=== PATIENT | male | born 1980 | race Caucasian/White ===

== ENCOUNTER 2018-07-06 16:28 | Emergency (ER) | payer SELFPAY ==
--- OUTSIDE RECORDS SUMMARY | 2018-07-06 16:31 | XMS REPORT | Clinical Summary ---
:1980 Author Organization [facility] Address [address] [place] [address] Care Team Providers Name Role Phone Elva Worthington MD Primary Care Provider Allergies Active Allergy Reactions Severity Noted Date Comments Fluticasone-Salmeterol Hives 02/13/2018 Zolpidem Other (See Comments) 12/08/2016 hallucinations Medications Medication Sig Dispensed Refills Start Date End Date Status sertraline (ZOLOFT) Take 100 mg by 0 Active 100 MG tablet mouth daily. busPIRone (BUSPAR) Take 10 mg by 0 01/24/2018 Active 10 MG tablet mouth 2 (two) times a day. lithium (LITHOBID) Take 600 mg by 0 01/16/2018 Active 300 MG CR tablet mouth 2 (two) times a day. LATUDA 120 mg Take 1 tablet by 0 01/16/2018 Active tablet mouth nightly. temazepam TAKE ONE CAPSULE 0 01/16/2018 Active (RESTORIL) 30 mg BY MOUTH DAILY capsule AT BEDTIME triamcinolone Apply topically 80 g 0 02/13/2018 Active (KENALOG) 0.1 % 2 (two) times a 9 ointment day. fenofibrate Take 1 tablet 90 tablet 0 02/13/2018 Active (TRICOR) 145 MG (145 mg total) tablet by mouth nightly. amLODIPine TAKE 1 TABLET BY 90 tablet 0 05/15/2018 Active (NORVASC) 5 mg MOUTH EVERY DAY tablet UNABLE TO FIND Take 4 capsules by mouth. Med Name: [place] [facility] 0 Discontinued 4 gel capsules by mouth 2 times a day 8 Fish oil supplement montelukast Take 10 mg by 0 Discontinued (SINGULAIR) 10 mg mouth nightly. 8 tablet clonAZEPAM Take 1 mg by 0 Discontinued (KlonoPIN) 1 MG mouth daily. 8 tablet divalproex Take 250 mg by 0 Discontinued (DEPAKOTE) 250 MG mouth 2 (two) 8 EC tablet times a day. fenofibrate Take 145 mg by 0 01/16/2018 Discontinued (TRICOR) 145 MG mouth nightly. 8 tablet amLODIPine Take 1 tablet (5 90 tablet 0 02/13/2018 Discontinued (NORVASC) 5 mg mg total) by 8 tablet mouth daily. Active Problems No known active problems Encounters Date Type Specialty Care Team Description 05/15/2018 Refill Internal Medicine Elva Worthington MD 03/14/2018 Office Visit Internal Medicine Elva Wotrhington MD Routine general medical examination at a health care facility; Essential hypertension; Hypertriglyceridemia; Bipolar 1 disorder, mixed, moderate (HCC); Insomnia, unspecified type; Abnormal TSH; Abnormal LFTs; Overweight 02/15/2018 Orders Only Internal Medicine Elva Worthington MD Abnormal TSH ( Primary Dx); Abnormal LFTs; Creatinine elevation 02/13/2018 Office Visit Internal Medicine Elva Worthington MD Bipolar 2 disorder (Primary Dx); Anxiety and depression; Eczema, unspecified type; Weight gain; Hypertriglyceridemia; Encounter for examination of blood pressure without abnormal findings; Influenza vaccination declined after 07/05/2017 Immunizations Name Dates Previously Given Next Due INFLUENZA QUAD PF 03/14/2018 Family History Medical History Relation Name Comments No Known Problems Brother Diabetes Father Lung cancer Maternal Grandfather Bipolar disorder Maternal Grandmother Diabetes Mother Migraines Sister Relation Name Status Comments Brother Father Alive Maternal Grandfather Maternal Grandmother Mother Alive Sister Social History Tobacco Use Types Packs/Day Years Used Date Never Smoker Smokeless Tobacco: Former User Alcohol Use Drinks/Week oz/Week Comments No Sex Assigned at Date Recorded Not on file Job Start Date Occupation Industry Not on file Not on file Not on file Travel History Travel Start Travel End No recent travel history available. Last Filed Vital Signs Vital Sign Reading Time Taken Blood Pressure 136/81 03/14/2018 10:47 AM CDT Pulse 71 03/14/2018 10:47 AM CDT Temperature 36.9 C (98.5 F) 02/13/2018 8:44 AM CDT Respiratory Rate - - Oxygen Saturation 96% 03/14/2018 10:47 AM CDT Inhaled Oxygen Concentration - - Weight 99.3 kg (219 lb) 03/14/2018 10:47 AM CDT Height 182.9 cm (6') 03/14/2018 10:47 AM CDT Body Mass Index 29.7 03/14/2018 10:47 AM CDT Plan of Treatment Health Maintenance Due Date Last Done Comments INFLUENZA VACCINE Completed 03/14/2018 Procedures Procedure Name Priority Date/Time Associated Diagnosis Comments PERSONAL FACTORS Routine 03/14/2018 11:41 Results for this AM CDT procedure are in the results section. ALBUMIN LEVEL Routine 03/14/2018 11:41 Results for this AM CDT procedure are in the results section. PLATELET COUNT Routine 03/14/2018 11:41 Results for this AM CDT procedure are in the results section. ALT (SGPT) Routine 03/14/2018 11:41 Results for this AM CDT procedure are in the results section. AST (SGOT) Routine 03/14/2018 11:41 Results for this AM CDT procedure are in the results section. GLUCOSE LEVEL Routine 03/14/2018 11:41 Results for this AM CDT procedure are in the results section. INTERPRETATION (REFLEX Routine 03/14/2018 11:41 Results for this [facility]) AM CDT procedure are in the results section. NAFLD FIBROSIS SCORE Routine 03/14/2018 11:41 Results for this (REFLEX) AM CDT procedure are in the results section. RPR SCREEN Routine 03/14/2018 11:41 Abnormal LFTs Results for this AM CDT procedure are in the results section. HEPATITIS C ANTIBODY Routine 03/14/2018 11:41 Abnormal LFTs Results for this AM CDT procedure are in the results section. HEPATITIS B SURFACE Routine 03/14/2018 11:41 Abnormal LFTs Results for this ANTIGEN AM CDT procedure are in the results section. HEPATITIS B SURFACE Routine 03/14/2018 11:41 Abnormal LFTs Results for this ANTIBODY AM CDT procedure are in the results section. HEPATITIS B CORE Routine 03/14/2018 11:41 Abnormal LFTs Results for this ANTIBODY TOTAL AM CDT procedure are in the results section. ANTI MITOCHONDRIA Routine 03/14/2018 11:41 Abnormal LFTs Results for this TITER AM CDT procedure are in the results section. F-ACTIN (SMOOTH Routine 03/14/2018 11:41 Abnormal LFTs Results for this MUSCLE) ANTIBODY, IGG AM CDT procedure are in the results section. THYROID PEROXIDASE Routine 03/14/2018 11:41 Abnormal TSH Results for this ANTIBODY AM CDT procedure are in the results section. URINALYSIS, COMPLETE, Routine 03/14/2018 11:41 Essential Results for this WITH REFLEX TO CULTURE AM CDT hypertension procedure are in the results section. VITAMIN B12 LEVEL Routine 03/14/2018 11:41 Bipolar 1 disorder, Results for this AM CDT mixed, moderate procedure are in (HCC) the results section. THYROID STIMULATING Routine 03/14/2018 11:41 Abnormal TSH Results for this HORMONE AM CDT procedure are in the results section. T4, FREE Routine 03/14/2018 11:41 Routine general Results for this AM CDT medical examination procedure are in at a health care the results facility section. Abnormal TSH HEMOGLOBIN A1C Routine 03/14/2018 11:41 Routine general Results for this AM CDT medical examination procedure are in at a health care the results facility section. COMPREHENSIVE Routine 03/14/2018 11:41 Routine general Results for this METABOLIC PANEL AM CDT medical examination procedure are in at a health care the results facility section. Essential hypertension Hypertriglyceridemia Bipolar 1 disorder, mixed, moderate (HCC) Insomnia, unspecified type Abnormal TSH Abnormal LFTs ECG 12-LEAD Routine 03/14/2018 11:33 Routine general Results for this AM CDT medical examination procedure are in at a health care the results facility section. Essential hypertension LITHIUM LEVEL Routine 02/13/2018 9:34 Results for this AM CDT procedure are in the results section. LIPID PANEL Routine 02/13/2018 9:34 Weight gain Results for this AM CDT Encounter for procedure are in examination of blood the results pressure without section. abnormal findings URINALYSIS, COMPLETE, Routine 02/13/2018 9:34 Weight gain Results for this WITH REFLEX TO CULTURE AM CDT Encounter for procedure are in examination of blood the results pressure without section. abnormal findings THYROID STIMULATING Routine 02/13/2018 9:34 Weight gain Results for this HORMONE AM CDT Encounter for procedure are in examination of blood the results pressure without section. abnormal findings T4, FREE Routine 02/13/2018 9:34 Weight gain Results for this AM CDT Encounter for procedure are in examination of blood the results pressure without section. abnormal findings COMPREHENSIVE Routine 02/13/2018 9:34 Bipolar 2 disorder Results for this METABOLIC PANEL AM CDT Anxiety and procedure are in depression the results Eczema, unspecified section. type Weight gain Hypertriglyceridemia Encounter for examination of blood pressure without abnormal findings CBC WITH PLATELET AND Routine 02/13/2018 9:34 Weight gain Results for this DIFFERENTIAL AM CDT Encounter for procedure are in examination of blood the results pressure without section. abnormal findings after 07/05/2017 Results PERSONAL FACTORS (03/14/2018 11:41 AM CDT) Height feet 6 ft [facility] [place] Height inches 0 in [facility] [place] Weight 219 lbs [facility] [place] Calculated BMI 29.7 [facility] [place] Diabetic NO [facility] [place] Resulting Agency Comment Performing Organization Information: Site ID: [id number] Name: [facility] Address: [address] [place] [phone] Director: Denice Vila Performing Organization Address [facility] Centercode Phone Number [facility] [place] [place] [address] INTERPRETATION (03/14/2018 11:41 AM CDT) Interpretation [facility] [place] Comment: NAFLD Fibrosis Score less than -1.455:Consistent with the absence of significant fibrosis. Reference: Edwige P, Sandra BECKMAN, Heather G, Dc E, Vega J, Srinivasa NGUYEN, Derek F, Eloy S, Nilay DA, et al. The NAFLD fibrosis score: a noninvasive system that identifies liver fibrosis in patients with NAFLD. HEPATOLOGY 2007;45:846-854. If fasting conditions were not met, use caution when interpreting the glucose test result and the NAFLD Fibrosis Score. Resulting Agency Comment Performing Organization Information: Site ID: [id number] Name: [facility] Address: [address] [place] [phone] Director: Denice Vila Performing Organization Address [facility] Centercodc [place] [address] NAFLD FIBROSIS SCORE (REFLEX) (03/14/2018 11:41 AM CDT) NAFLD fibrosis score -2.674 [facility] [place] Resulting Agency Comment Performing Organization Information: Site ID: RGA Name: [facility] Address: [address] [place] [phone] Director: Denice Vila Performing Organization Address [facility] Centercode Phone Number [facility] [address] [address] URINALYSIS, COMPLETE, WITH REFLEX TO CULTURE (03/14/2018 11:41 AM CDT)Only the most recent of2 resultswithin the time period is included. Color, UA YELLOW YELLOW [facility] [place] Appearance CLEAR CLEAR [facility] [place] Specific gravity, urine 1.003 1.001 - 1.035 [facility] [place] pH, urine 7.0 5.0 - 8.0 [facility] [place] Glucose, urine NEGATIVE NEGATIVE [facility] [place] Bilirubin, UA NEGATIVE NEGATIVE [facility] [place] Ketones, UA NEGATIVE NEGATIVE [facility] [place] Occult blood, urine NEGATIVE NEGATIVE [facility] [place] Protein, UA NEGATIVE NEGATIVE [facility] [place] Nitrite, UA NEGATIVE NEGATIVE [facility] [place] Leukocyte esterase, UA NEGATIVE NEGATIVE [facility] [place] WBC, UA NONE SEEN < OR=5 /HPF [facility] [place] RBC, UA NONE SEEN < OR=2 /HPF [facility] [place] Squamous epithelial NONE SEEN < OR=5 /HPF [facility] [place] cells, UA Bacteria, UA NONE SEEN NONE SEEN /HPF [facility] [place] Hyaline casts, UA NONE SEEN NONE SEEN /LPF [facility] [place] Reflex NO CULTURE INDICATED [facility] [place] Resulting Agency Comment Performing Organization Information: Site ID: [facility] Name: [facility] Address: [address] [place] [phone] Director: Denice Vila Performing Organization Address [facility] Centercode Phone Number [facility] [address] [address] Hepatitis C antibody (03/14/2018 11:41 AM CDT) Hepatitis C Ab NON-REACTIVE NON-REACTIVE [facility] [place] Signal/cutoff 0.01 <1.00 [facility] [place] Specimen Blood Resulting Agency Comment Performing Organization Information: Site ID: [facility] Name: [facility] Address: [address] [place] [phone] Director: Denice Vila Performing Organization Address City/[facility]/Zipcode Phone Number [facility] [address] [address] Thyroperoxidase antibody (03/14/2018 11:41 AM CDT) Thyroperoxidase Ab <1 <9 IU/mL [facility] Specimen Blood Resulting Agency Comment Performing Organization Information: Site ID: [id number] Name: [facility] Address: [address] [place] [address] Director: Dr. Arik Ocasio Performing Organization Address City/[facility] Centercode Phone Number [facility] [place] [address] F-actin (smooth muscle) antibody, IgG (03/14/2018 11:41 AM CDT) F-actin (smooth muscle) <20 U [facility] Ab, IgG Comment: [facility] Reference Range: < 20 NEGATIVE > OR=20 POSITIVE Antibodies recognizing actin are the main component of smooth muscle antibodies associated with autoimmune liver disease. Actin antibodies are found in approximately 75% of patients with autoimmune hepatitis (AIH) type 1, approximately 65% of patients with autoimmune cholangitis, approximately 30% of patients with primary biliary cirrhosis, and approximately 2% of healthy people. High values are closely correlated with AIH type 1. Specimen Blood Resulting Agency Comment Performing Organization Information: Site ID: [id number] Name: [facility] [employer], Address: [address] [place] [phone] Director: Ariela Hackett MD,PhD,HAFSA Performing Organization Address [facility] Centercode Phone Number [facility] [place] [address] [facility] Hepatitis B core antibody total (03/14/2018 11:41 AM CDT) Hepatitis B core total Ab NON-REACTIVE NON-REACTIVE [facility] [place] Specimen Blood Resulting Agency Comment Performing Organization Information: Site ID: RGA Name: [facility] Address: [address] [place] [phone] Director: Denice Vila Performing Organization Address [facility]/Zipcode Phone Number [facility] [address] [address] Anti mitochondria titer (03/14/2018 11:41 AM CDT) Mitochondrial Ab <20.0 U [facility] Comment: Reference Range: NEGATIVE:< OR=20.0 EQUIVOCAL: 20.1-24.9 POSITIVE:> OR=25.0 Specimen Blood Resulting Agency Comment Performing Organization Information: Site ID: [id number] Name: [email or web address], Address: [address] [place] [phone] Director: Ariela Hackett MD,PhD,HAFSA Performing Organization Address City/State/[facility] Centercode Phone Number [facility] [address] [place] [phone] [facility] RPR screen (03/14/2018 11:41 AM CDT) RPR (monitor) w/refl titer NON-REACTIVE NON-REACTIVE [facility] [place] Specimen Blood Resulting Agency Comment Performing Organization Information: Site ID: RGA Name: [facility] Address: [address] [place] [phone] Director: Denice Vila Performing Organization Address [facility] [place] [address] Hepatitis B surface antibody (03/14/2018 11:41 AM CDT) Hepatitis B surface Ab REACTIVE (A) NON-REACTIVE [facility] [place] Specimen Blood Resulting Agency Comment Performing Organization Information: Site ID: RGA Name: [facility] Address: [address] [place] [phone] Director: Denice Vila Performing Organization Address City/[facility] Centerc[facility] [place] [address] Hepatitis B surface antigen (03/14/2018 11:41 AM CDT) Hepatitis B surface Ag NON-REACTIVE NON-REACTIVE [facility] [place] Specimen Blood Resulting Agency Comment Performing Organization Information: Site ID: RGA Name: [facility] Address: [address] [place] [phone] Director: Denice Vila Performing Organization Address City/State/[facility] Phone Number [facility] [place] [address] [place] [address] Platelet count (03/14/2018 11:41 AM CDT) Platelet count 177 140 - 400 Thousand/uL [facility] [place] Resulting Agency Comment Performing Organization Information: Site ID: A Name: [facility] Address: [address] [place] [address] Director: Denice Vila Performing Organization Address [facility] [place] [address] ALT (SGPT) (03/14/2018 11:41 AM CDT) ALT 39 9 - 46 U/L [facility] [place] Resulting Agency Comment Performing Organization Information: Site ID: A Name: [facility] Address: [address] [place] [phone] Director: Denice Vila Performing Organization Address [facility] [place] [address] AST (SGOT) (03/14/2018 11:41 AM CDT) AST 20 10 - 40 U/L [facility] [place] Resulting Agency Comment Performing Organization Information: Site ID: A Name: [facility] Address: [address] [place] [phone] Director: Denice Vila Performing Organization Address [facility] [place] [address] Thyroid stimulating hormone (03/14/2018 11:41 AM CDT)Only the most recent of2 resultswithin the time period is included. TSH 6.27 (H) 0.40 - 4.50 mIU/L [facility] [place] Specimen Blood Resulting Agency Comment Performing Organization Information: Site ID: RGA Name: [facility] Address: [address] [place] [phone] Director: Denice Vila Performing Organization Address [facility] Number [facility] [place] [phone] T4, free (03/14/2018 11:41 AM CDT)Only the most recent of2 resultswithin the time period is included. T4, free 1.2 0.8 - 1.8 ng/dL [facility] [place] Specimen Blood Resulting Agency Comment Performing Organization Information: Site ID: [facility] Name: [facility] Address: [address] [place] [phone] Director: Denice Vila Performing Organization Address [facility] [place] [address] Hemoglobin A1c (03/14/2018 11:41 AM CDT) Hemoglobin A1C 5.1 <5.7 % of total Hgb [facility] [place] Comment: For the purpose of screening for the presence of diabetes: <5.7% Consistent with the absence of diabetes 5.7-6.4%Consistent with increased risk for diabetes (prediabetes) > or=6.5%Consistent with diabetes This assay result is consistent with a decreased risk of diabetes. Currently, no consensus exists regarding use of hemoglobin A1c for diagnosis of diabetes in children. According to [place] [employer] (ADA) guidelines, hemoglobin A1c <7.0% represents optimal control in non- diabetic patients. Different metrics may apply to specific patient populations. Standards of Medical Care in Diabetes(ADA). Specimen Blood Resulting Agency Comment Performing Organization Information: Site ID: [facility] Name: [facility] Address: [address] [place] [phone] Director: Denice Vila Performing Organization Address [facility] Phone Number [facility] [address] [phone] Glucose level (03/14/2018 11:41 AM CDT) Glucose 90 65 - 99 mg/dL [facility] [place] Comment: Fasting reference interval Resulting Agency Comment Performing Organization Information: Site ID: [facility] Name: [facility] Address: [address] [place] [phone] Director: Denice Vila Performing Organization Address [facility] Phone Number [facility] [address] [address] Vitamin B12 level (03/14/2018 11:41 AM CDT) Vitamin B12 719 200 - 1,100 pg/mL [facility] [place] Specimen Blood Resulting Agency Comment Performing Organization Information: Site ID: RGA Name: [facility] Address: [address] [place] [phone] Director: Denice Vila Performing Organization Address City/[facility] [place] [address] Albumin level (03/14/2018 11:41 AM CDT) Albumin, S 5.1 3.6 - 5.1 g/dL [facility] [place] Resulting Agency Comment Performing Organization Information: Site ID: RGA Name: [facility] Address: [address] [place] [phone] Director: Denice Vila Performing Organization Address [facility] [place] [address] Comprehensive metabolic panel (03/14/2018 11:41 AM CDT)Only the most recent of2 resultswithin the time period is included. Glucose 90 65 - 99 mg/dL [facility] Comment: [place] Fasting reference interval BUN, whole blood 13 7 - 25 mg/dL [facility] [place] Creatinine 1.20 0.60 - 1.35 mg/dL [facility] [place] EGFR Non-Afr. [place]ese 77 > OR=60 [facility] mL/min/1.73m2 [place] EGFR 89 > OR=60 [facility] mL/min/1.73m2 [place] BUN/creatinine ratio NOT APPLICABLE 6 - 22 (calc) [facility] [place] Sodium 138 135 - 146 mmol/L [facility] [place] Potassium 4.1 3.5 - 5.3 mmol/L [facility] [place] Chloride 101 98 - 110 mmol/L [facility] [place] CO2 30 20 - 32 mmol/L [facility] [place] Calcium 9.9 8.6 - 10.3 mg/dL [facility] [place] Protein 7.5 6.1 - 8.1 g/dL [facility] [place] Albumin, S 5.1 3.6 - 5.1 g/dL [facility] [place] Globulin, total 2.4 1.9 - 3.7 g/dL [facility] (calc) [place] Albumin/globulin ratio 2.1 1.0 - 2.5 (calc) [facility] [place] Total bilirubin 0.5 0.2 - 1.2 mg/dL [facility] [place] Alkaline phosphatase 82 40 - 115 U/L [facility] [place] AST 20 10 - 40 U/L [facility] [place] ALT 39 9 - 46 U/L [facility] [place] Specimen Blood Resulting Agency Comment Performing Organization Information: Site ID: RGA Name: [facility] Address: [address] [place] [phone] Director: Denice Vila Performing Organization Address City/[facility] Cent[facility] Phone Number [facility] [address] [address] ECG 12 lead (03/14/2018 11:33 AM CDT) Ventricular rate 57 [facility] Atrial rate 57 [facility] LA interval 152 [facility] QRSD interval 102 [facility] QT interval 426 [facility] QTC interval 414 [facility] P axis 1 54 [facility] MUSE QRS axis 1 86 [facility] MUSE T wave axis 52 [facility] MUSE EKG impression normal ekg- Performing Organization Address [facility] Phone Number Zoom MUSE [address] [place] [address] CBC with platelet and differential (02/13/2018 9:34 AM CDT) WBC 6.2 3.8 - 10.8 Thousand/uL [facility] [place] RBC 4.58 4.20 - 5.80 Million/uL [facility] [place] HGB 14.1 13.2 - 17.1 g/dL [facility] [place] HCT 41.6 38.5 - 50.0 % [facility] [place] MCV 90.8 80.0 - 100.0 fL [facility] [place] MCH 30.8 27.0 - 33.0 pg [facility] [place] MCHC 33.9 32.0 - 36.0 g/dL [facility] [place] RDW 12.9 11.0 - 15.0 % [facility] [place] Platelet count 177 140 - 400 Thousand/uL [facility] [place] MPV 11.3 7.5 - 12.5 fL [facility] Neutrophils, absolute 4,340 1,500 - 7,800 cells/uL [facility] [place] Lymphocytes, absolute 1,190 850 - 3,900 cells/uL [facility] [place] Monocytes, absolute 502 200 - 950 cells/uL [facility] [place] Eosinophils, absolute 118 15 - 500 cells/uL [facility] [place] Basophils, absolute 50 0 - 200 cells/uL [facility] Neutrophils 70 % [facility] Lymphocytes 19.2 % [facility] Monocytes 8.1 % [facility] Eosinophils 1.9 % [facility] Basophils + RC 0.8 % [facility] Specimen Blood Resulting Agency Comment Performing Organization Information: Site ID: [id number] Name: [facility] Address: [address] [place] [id number] Director: Denice Vila Performing Organization Address [facility] Phone Number [facility] [place] [address] [place] level (02/13/2018 9:34 AM CDT) [place] 0.8 0.6 - 1.2 mmol/L [facility] [place] Resulting Agency Comment Performing Organization Information: Site ID: [id number] Name: [facility] Address: [address] [place] [phone] Director: Denice Vila Performing Organization Address [facility] Phone Number [facility] [place] [address] Lipid panel (02/13/2018 9:34 AM CDT) Cholesterol, total 219 (H) <200 mg/dL [facility] HDL cholesterol 30 (L) >40 mg/dL [facility] Triglycerides 229 (H) <150 mg/dL [facility] LDL cholesterol 152 (H) mg/dL (calc) [facility] calculated Comment: [place] Reference range: <100 Desirable range <100 mg/dL for primary prevention; <70 mg/dL for patients with CHD or diabetic patients with > or=2 CHD risk factors. LDL-C is now calculated using the José Luis calculation, which is a validated novel method providing better accuracy than the Friedewald equation in the estimation of LDL-C. Werner CHASE et al. HOANG. 2013;310(19): 3958-9121 (http://education.(In)Touch Network.Ti Knight/faq/DBY890) Cholesterol/HDL ratio 7.3 (H) <5.0 (calc) [facility] [place] Non-HDL cholesterol 189 (H) <130 mg/dL [facility] Comment: (calc) [place] For patients with diabetes plus 1 major ASCVD risk factor, treating to a non-HDL-C goal of <100 mg/dL (LDL-C of <70 mg/dL) is considered a therapeutic option. Specimen Blood Resulting Agency Comment Performing Organization Information: Site ID: [id number] Name: [facility] Address: [address] [place] [id number] Director: Denice Vila Performing Organization Address City/State/Zipcode Phone Number [facility] [address] [address] after 07/05/2017 Insurance Payer Benefit Plan / Group Subscriber ID Type Phone Address BCBS BCBS OUT OF STATE xxxxxxxxxxxx PPO Advance Directives Patient has advance care planning documents on file. For more information, please contact:[place] [address]
--- OUTSIDE RECORDS SUMMARY | 2018-07-06 16:31 | XMS REPORT | Summary of Care ---
:1980 Author Organization [facility] Address [address] [place] [id number]- Encounter HQ Uzmantr_scarlett(FIN) [id number] Date(s): 05/20/16 - 05/20/[address] [address]- Discharge Diagnosis: Cough Discharge Disposition: Home or Self Care Attending Physician: Jose Hdz MD Vital Signs Most recent to oldest 1 2 3 [Reference Range]: Height 182.88 cm (05/20/16 3:02 PM) Temperature Oral [96.4-99.1 98 DegF 98.3 DegF DegF] (05/20/16 5:58 PM) (05/20/16 3:02 PM) Blood Pressure [90-140/60-90 142/98 mmHg 145/81 mmHg 155/102 mmHg mmHg] *HI* *HI* *HI* (05/20/16 5:58 PM) (05/20/16 5:27 PM) (05/20/16 4:40 PM) Respiratory Rate [14-20 16 BRMIN 17 BRMIN 16 BRMIN BRMIN] (05/20/16 5:58 PM) (05/20/16 5:27 PM) (05/20/16 4:40 PM) Peripheral Pulse Rate 58 bpm 59 bpm 54 bpm [60-100 bpm] *LOW* *LOW* *LOW* (05/20/16 5:58 PM) (05/20/16 5:27 PM) (05/20/16 4:40 PM) Weight 86.818 kg (05/20/16 3:02 PM) Body Mass Index 25.96 m2 (05/20/16 3:02 PM) Problem List Condition Effective Dates Status Health Status Informant Bipolar(Confirmed) Resolved Eruption1, 2 04/02/08 Active 1[facility] migrated from [facility] on 10/29[facility]14.[facility] Allergies, Adverse Reactions, Alerts Substance Reaction Severity Status NKDA1 Active [facility] Originally documented as NKA. Medications acetaminophen-codeine 300 mg-30 mg oral tablet 1 tab, PO, Q6H, PRN Cough, X 5 day, # 20 tab, 0 Refill(s) Start Date: 05/20/16 Stop Date: 05/25/16 Status: Orderedacetaminophen-codeine 300 mg-30 mg oral tablet 1 tab, Route: PO, Drug Form: TAB, Dosing Weight 86.818, kg, ONCE, STAT, Start date: 05/20/16 17:11:00 RESEARCH COMPLIANCE SPECIALIST, Stop date: 05/20/16 17:11:00 RESEARCH COMPLIANCE SPECIALIST Notes: Do not exceed 4gm/day of acetaminophen. (Same as: Tylenol with Codeine # 3) Start Date: 05/20/16 Stop Date: 05/20/16 Status: Completedazithromycin 500 mg, 2 tab, Route: PO, Drug form: TAB, ONCE, Dosing Weight 86.818, kg, Priority: STAT, Start date: 05/20/16 17:12:00 RESEARCH COMPLIANCE SPECIALIST, Stop date: 05/20/16 17:12:00 RESEARCH COMPLIANCE SPECIALIST Notes: Take 1 hour before or 2 hours after meals.(Same As: Zithromax) Start Date: 05/20/16 Stop Date: 05/20/16 Status: Completedazithromycin 500 mg oral tablet 500 mg=1 tab, PO, Daily, X 2 day, # 2 tab, 0 Refill(s) Start Date: 05/21/16 Stop Date: 05/23/16 Status: Ordered Results ELECTROLYTES Most recent to oldest [Reference Range]: 1 Sodium Lvl [135-145 mEq/L] 141 mEq/L (05/20/16 3:58 PM) Potassium Lvl [3.5-5.1 mEq/L] 3.8 mEq/L (05/20/16 3:58 PM) Chloride Lvl [95-109 mEq/L] 106 mEq/L (05/20/16 3:58 PM) CO2 [24-32 mEq/L] 27 mEq/L (05/20/16 3:58 PM) AGAP [10.0-20.0 mEq/L] 11.8 mEq/L (05/20/16 3:58 PM) CHEM PANEL Most recent to oldest [Reference Range]: 1 Creatinine Lvl [0.50-1.40 mg/dL] 1.09 mg/dL (05/20/16 3:58 PM) eGFR 87 mL/min/1.73m2 1 *NA* (05/20/16 3:58 PM) BUN [7-22 mg/dL] 7 mg/dL (05/20/16 3:58 PM) Glucose Lvl [70-99 mg/dL] 90 mg/dL (05/20/16 3:58 PM) Calcium Lvl [8.5-10.5 mg/dL] 9.1 mg/dL (05/20/16 3:58 PM) 1Result Comment: The eGFR is calculated using the CKD-EPI formula. In most young , healthy individualsthe eGFR will be >90 mL/min/1.73m2. The eGFR declines with age. An eGFR of 60-89 may be normal in some populations, particularly the elderly, for whom the CKD-EPI formula has not been extensively validated. Use of the eGFR is not recommended in the following populations: Individuals with unstable creatinine concentrations, including patients and those with serious co-morbid conditions. Patients with extremes in muscle mass or diet. The data above are obtained from the National Kidney Disease Education Program ( NKDEP) which additionally recommends that when the eGFR is used in patients with extremes of body mass index for purposesof drug dosing, the eGFR should be multiplied by the estimated BMI.HEMATOLOGY Most recent to oldest [Reference Range]: 1 WBC [3.7-10.4 K/CMM] 5.8 K/CMM (05/20/16 3:58 PM) RBC [4.70-6.10 M/CMM] 5.26 M/CMM (05/20/16 3:58 PM) Hgb [14.0-18.0 g/dL] 15.4 g/dL (05/20/16 3:58 PM) Hct [42.0-54.0 %] 45.9 % (05/20/16 3:58 PM) MCV [80.0-94.0 fL] 87.4 fL (05/20/16 3:58 PM) MCH [27.0-31.0 pg] 29.2 pg (05/20/16 3:58 PM) MCHC [32.0-36.0 g/dL] 33.5 g/dL (05/20/16 3:58 PM) RDW [11.5-14.5 %] 13.1 % (05/20/16 3:58 PM) Platelet [133-450 K/CMM] 141 K/CMM (05/20/16 3:58 PM) MPV [7.4-10.4 fL] 9.1 fL (05/20/16 3:58 PM) Segs [45.0-75.0 %] 67.9 % (05/20/16 3:58 PM) Lymphocytes [20.0-40.0 %] 21.1 % (05/20/16 3:58 PM) Monocytes [2.0-12.0 %] 8.6 % (05/20/16 3:58 PM) Eosinophils [0.0-4.0 %] 1.6 % (05/20/16 3:58 PM) Basophils [0.0-1.0 %] 0.8 % (05/20/16 3:58 PM) Segs-Bands # [1.5-8.1 K/CMM] 4.0 K/CMM (05/20/16 3:58 PM) Lymphocytes # [1.0-5.5 K/CMM] 1.2 K/CMM (05/20/16 3:58 PM) Monocytes # [0.0-0.8 K/CMM] 0.5 K/CMM (05/20/16 3:58 PM) Eosinophils # [0.0-0.5 K/CMM] 0.1 K/CMM (05/20/16 3:58 PM) Immunizations No data available for this section Procedures Procedure Date Related Diagnosis Body Site LASIK Social History Social History Type Response Smoking Status Never smoker; Exposure to Tobacco Smoke None; Cigarette Smoking Last 365 Days No; Reg Smoking Cessation Counseling No Assessment and Plan No data available for this section
--- OUTSIDE RECORDS SUMMARY | 2018-07-06 16:31 | XMS REPORT | Continuity of Care Document ---
:1980 Author Organization Interface Problems Problem Status Onset Classification Date Comments Source Date Reported APNEA Active 09/24/[address] Discharge 05/20/20 05/23/2016 [facility] Diagnosis: [address] [place] [address] Cough FEVER Active 05/20/[address] Discharge 08/29/19 09/01/2015 [facility] Diagnosis: [address] [place] [address] Epididymitis Discharge 08/29/19 09/01/2015 [facility] Diagnosis: [address] [place] [address] Acute hydrocele ABD PAIN Active 08/29/[address] Eruption<sup>1, Active 04/02/20 Problem 10/10/2016 Data 2</sup> 08 migrated [facility] from [facility] on 10/29/14. Bipolar Resolved Problem 10/10/2016 [facility] Medications Medication Details Route Status Patient Ordering Order Source Instructions Provider Date azithromycin 500 mg=1 Active 500 mg oral tab, PO, 016 [facility] tablet Daily, X 2 City day, # 2 tab, 0 Refill(s) Acetaminophen 1 tab, PO, Active 300 MG / Q6H, PRN 016 [facility] Codeine Cough, X 5 City Phosphate 30 MG day, # 20 Oral Tablet tab, 0 Refill(s) Azithromycin 500 mg, 2 Inactive tab, Route: 016 [facility] PO, Drug City form: TAB, ONCE, Dosing Weight 86.818, kg, Priority: STAT, Start date: 05/20/16 17:12:00 BATCH MAKER, Stop date: 05/20/16 17:12:00 CSTNotes: Take 1 hour before or 2 hours after meals. (Same As: Zithromax) Acetaminophen 1 tab, Inactive 300 MG / Route: PO, [facility] Codeine Drug Form: City Phosphate 30 MG TAB, Dosing Oral Tablet Weight 86.818, kg, ONCE, STAT, Start date: 05/20/16 17:11:00 BATCH MAKER, Stop date: 05/20/16 17:11:00 CSTNotes: Do not exceed 4gm/day of acetaminophe n. (Same as: Tylenol with Codeine # 3) Acetaminophen 1 tab, PO, Active 300 MG / Q6H, PRN [address] [place] [address] Codeine Pain, X 3 City Phosphate 30 MG day, # 12 Oral Tablet tab, 0 [Tylenol with Refill(s) Codeine #3] Acetaminophen 1 tab, PO, Inactive MH 300 MG / Q6H, PRN [address] [place] [address] Codeine Pain, X 5 City Phosphate 30 MG day, # 20 Oral Tablet tab, 0 [Tylenol with Refill(s) Codeine #3] Ceftriaxone 250 mg, Inactive Route: IM, [address] [place] [address] Drug form: City PDR/INJ, ONCE, Dosing Weight 79.545, kg, Priority: STAT, Start date: 08/29/15 14:50:00, Stop date: 08/29/15 14:50:00Note s: (Same As: Rocephin). Use with 100 mL NS and infuse over 30 min MEDICATION WASTE Product Size: 1000 mg Product Wasted: ___ mg doxycycline 100 mg=1 Active hyclate 100 mg tab, PO, [address] [place] [address] oral tablet Q12H, X 10 City day, # 20 tab, 0 Refill(s) Ibuprofen 600 mg, 1 Inactive tab, Route: [address] [place] [address] PO, Drug City form: TAB, ONCE, Dosing Weight 79.545, kg, Priority: STAT, Start date: 08/29/15 14:12:00, Stop date: 08/29/15 14:12:00Note s: (Same as: Motrin) "Do Not Crush" Take with food. Acetaminophen 1 tab, Inactive MH 325 MG / Route: PO, [address] [place] [address] Hydrocodone Drug Form: [facility] Bitartrate 5 MG TAB, Dosing Oral Tablet Weight [[place] 5/325] 79.545, kg, ONCE, STAT, Start date: 08/29/15 14:12:00, Stop date: 08/29/15 14:12:00Note s: (Same as: [place] 325/5) Do not exceed 4gm/day of acetaminophe n. Allergies, Adverse Reactions, Alerts Substance Category Reaction Severity Reaction Status Date Comments Source type Reported Immunizations Immunization Date Given Site Status Last Updated Comments Source Results Order Name Results Value Reference Date Interpretation Comments Source Range ELECTROLYTE AGAP 11.8 meq/L 10.0 - 05/20 S . [facility] ELECTROLYTE eGFR 87 05/20 Result Comment: The eGFR is calculated using the CKD-EPI formula. In most young, healthy individuals the eGFR will be >90 mL/ min/1.73m2. The eGFR declines with age. An eGFR of 60-89 may be normal in mL/min/1.7 some populations, particularly the elderly, for whom the CKD-EPI formula has not been extensively validated. Use of the eGFR is not recommended in the following populations: [address] Individuals with unstable creatinine concentrations, including patients and those with serious co-morbid conditions. Patients with extremes in muscle mass or diet. The data above are obtained from the National Kidney Disease Education Program (NKDEP) which additionally recommends that when the eGFR is used in patients with extremes of body mass index for purposes of drug dosing, the eGFR should be multiplied by the estimated BMI. ELECTROLYTE CO2 27 meq/L 24 - 32 05/20 S [facility] ELECTROLYTE BUN 7 mg/dL 7 - 22 05/20 S [facility] ELECTROLYTE Creatinine 1.09 mg/dL 0.50 - 05/20 S Lvl 1. [facility] ELECTROLYTE Potassium 3.8 meq/L 3.5 - 5.1 05/20 S Lvl [facility] ELECTROLYTE Sodium Lvl 141 meq/L 135 - 145 05/20 S [facility] ELECTROLYTE Glucose Lvl 90 mg/dL 70 - 99 05/20 S [facility] ELECTROLYTE Calcium Lvl 9.1 mg/dL 8.5 - 10.5 05/20 S [facility] ELECTROLYTE Chloride Lvl 106 meq/L 95 - 109 05/20 S [facility] HEMATOLOGY Eosinophils 1.6 % 0.0 - 4.0 05/20 [facility] HEMATOLOGY Monocytes 8.6 % 2.0 - 12.0 05/20 [facility] HEMATOLOGY Basophils 0.8 % 0.0 - 1.0 05/20 [facility] HEMATOLOGY Lymphocytes 21.1 % 20.0 - 05/20 MH 40.0 [facility] HEMATOLOGY Segs 67.9 % 45.0 - 05/20 MH 75.0 /2015 [facility] HEMATOLOGY Monocytes # 0.5 K/CMM 0.0 - 0.8 05/20 /2015 [facility] HEMATOLOGY Eosinophils 0.1 K/CMM 0.0 - 0.5 05/20 MH # /2015 [facility] HEMATOLOGY Segs-Bands # 4.0 K/CMM 1.5 - 8.1 05/20 [facility] HEMATOLOGY Lymphocytes 1.2 K/CMM 1.0 - 5.5 05/20 MH # /2015 [facility] HEMATOLOGY MPV 9.1 fL 7.4 - 10.4 05/20 /2015 [facility] Platelet 141 K/CMM 133 - 450 05/20 /2015 [facility] HEMATOLOGY RDW 13.1 % 11.5 - 05/20 MH 14.5 [facility] HEMATOLOGY Hct 45.9 % 42.0 - 05/20 MH 54.0 [facility] HEMATOLOGY WBC 5.8 K/CMM 3.7 - 10.4 05/20 /2015 [facility] HEMATOLOGY RBC 5.26 M/CMM 4.70 - 05/20 MH 6.10 [facility] HEMATOLOGY Hgb 15.4 g/dL 14.0 - 05/20 MH 18.0 [facility] HEMATOLOGY MCHC 33.5 g/dL 32.0 - 05/20 MH 36.0 [facility] HEMATOLOGY MCH 29.2 pg 27.0 - 05/20 MH 31.0 [facility] HEMATOLOGY MCV 87.4 fL 80.0 - 05/20 MH 94.0 [facility] Chest 2 Chest 2 Exam: Two-view chest x-ray 05/20 - views DX views DX /2015 - [facility] Reason for Exam: Cough and fever Read by: Alejandro Moralez MD Dictated Date/time: 05/20/16 15:28 Electronically Signed by: Alejandro Moralez MD 05/20/16 15:29 FINAL REPORT Comparison Exam: None Discussion: Cardiomediastinal silhouette is within normal limits. Both hemidiaphragms well visualized. No pulmonary edema or pleural effusions. No focal lung consolidations. Trachea is midline. No acute bony abnormalities. Impression: 1. No acute cardiopulmonary abnormalities. MOLECULAR N gonorrhea Negative Negative 08/28 DIAGNOSTIC by Amp [facility] (APTIMA) *NA* [facility] (08/29/15 2:02 PM) MOLECULAR C Negative Negative 08/28 DIAGNOSTIC trachomatis [facility] by Amp Det *NA* [facility] ([facility]) (08/29/15 2:02 PM) MOLECULAR Source Urine 08/28 DIAGNOSTIC APTIMA [facility] *NA* [facility] (08/29/15 2:02 PM) URINE AND UA Sq Epi None Seen 08/28 STOOL [facility] URINE AND UA Ketones Negative 08/28 STOOL [facility] URINE AND UA <=1.0 0.1 - 1.0 08/28 STOOL Urobilinogen mg/dL [facility] URINE AND UA pH >=9.0 5.0 - 8.0 08/28 [facility] *ABN* [facility] (08/29/15 2:02 PM) URINE AND UA Color Light Yellow Yellow 08/28 [facility] *NA* [facility] (08/29/15 2:02 PM) URINE AND UA RBC null 0 - 2 08/28 [facility] URINE AND UA Blood Negative Negative 08/28 STOOL [facility] (08/29/15 2:02 PM) [facility] URINE AND UA Nitrite Negative Negative 08/28 [facility] (08/29/15 2:02 PM) [facility] URINE AND UA Leuk Est Negative Negative 08/28 [facility] (08/29/15 2:02 PM) [facility] URINE AND UA WBC null 0 - 5 08/28 [facility] URINE AND UA Bili Negative Negative 08/28 [facility] *NA* [facility] (08/29/15 2:02 PM) URINE AND UA Turbidity Clear Clear 08/28 STOOL [facility] (08/29/15 2:02 PM) [facility] URINE AND UA Spec Grav 1.004 <=1.030 08/28 [facility] URINE AND UA Protein Negative Negative 08/28 STOOL mg/dL mg/dL [facility] URINE AND UA Glucose Negative Negative 08/28 STOOL mg/dL mg/dL [facility] Scrotal/Alla Scrotal/Test Clinical history: Pain and swelling. 08/28 - ticle US icle US /2015 - [facility] : 1980. City Read by: Cas Alcala MD Dictated Date/time: 08/29/15 14:34 Technique: Scrotal high resolution aleman scale and duplex doppler ultrasound imaging with spectral analysis. Electronically Signed by: Cas Alcala MD 08/29/15 14:37 FINAL REPORT Exam Date 08/29/2015. Right side: The testis measures 4.9 x 2.6 x 3.8 cm. The testis has normal echodensity aside from one or 2 tiny calcifications. There is no mass. There is normal testicular doppler flow. The epididymis h ead measures 10 x 9 x 10 mm. There is normal epididymal doppler flow. There is no mass. There is mild hydrocele. There is no varicocele. Left side: The testis measures 4.5 x 2.5 x 3.6 cm. The testis has normal echodensity aside from one tiny calcification. There is no mass. There is normal testicular doppler flow. The epididymis head clary sures 12 x 10 x 10 mm. The epididymal body is thickened. There is increased epididymal doppler flow. There is no mass. There is mild hydrocele. There is no varicocele. Impression: 1. Findings consistent with left epididymitis. 2. Bilateral hydrocele. 3. Few tiny testicular calcifications. Vital Signs Vital Sign Value Date Comments Source Temperature Oral (F) 98 F 05/20/2016 [facility] Heart Rate 58 05/20/2016 [facility] Respitory Rate 16 05/20/2016 [facility] Systolic (mm Hg) 142 05/20/2016 [facility] Diastolic (mm Hg) 98 05/20/2016 [facility] Respitory Rate 17 05/20/2016 [facility] Heart Rate 59 05/20/2016 [facility] Systolic (mm Hg) 145 05/20/2016 [facility] Diastolic (mm Hg) 81 05/20/2016 [facility] Systolic (mm Hg) 155 05/20/2016 [facility] Diastolic (mm Hg) 102 05/20/2016 [facility] Respitory Rate 16 05/20/2016 [facility] Heart Rate 54 05/20/2016 [facility] Weight 86.818 05/20/2016 [facility] Height 182.88 cm 05/20/2016 [facility] Temperature Oral (F) 98.3 F 05/20/2016 [facility] BMI Calculated 25.96 05/20/2016 [facility] Heart Rate 56 08/29/2015 [facility] Respitory Rate 19 08/29/2015 [facility] Systolic (mm Hg) 125 08/29/2015 [facility] Diastolic (mm Hg) 68 08/29/2015 [facility] Weight 79.545 08/29/2015 [facility] Temperature Oral (F) 98.1 F 08/29/2015 [facility] Height 182.88 cm 08/29/2015 [facility] BMI Calculated 23.78 08/29/2015 [facility] Heart Rate 53 08/29/2015 [facility] Systolic (mm Hg) 145 08/29/2015 [facility] Diastolic (mm Hg) 88 08/29/2015 [facility] Respitory Rate 16 08/29/2015 [facility] Encounters Location Location Encounter Encounter Reason Attending ADM DC Status Source Details Type Number For Provider Date Date Visit Formerly [facility] [id number] Je 08/28 08/28 Chad Emergency /2015 [facility] Emergency [id number] Jose 05/20 05/21 DOROTEO Hdz /2015 [facility] [id number] Murray 10/08 10/08 Chad Knowles /2016 [facility] Procedures Procedure Code Date Perfomer Comments Source LASIK [id number] [facility] LASIK [id number] [facility]
--- OUTSIDE RECORDS SUMMARY | 2018-07-06 16:31 | XMS REPORT | Summary of Care ---
:1980 Author Organization [facility] Address [address] [place] [address]- Encounter HQ Zuleyma(WILFRIDO) [id number] Date(s): 08/29/15 - 08/29/[address] [address]- Discharge Diagnosis: Epididymitis Discharge Diagnosis: Acute hydrocele Discharge Disposition: Home Attending Physician: Je Roth MD Vital Signs Most recent to oldest [Reference Range]: 1 2 Height 182.88 cm (08/29/15 10:58 AM) Temperature Oral [96.4-99.1 DegF] 98.1 DegF (08/29/15 10:58 AM) Blood Pressure [90-140/60-90 mmHg] 125/68 mmHg 145/88 mmHg (08/29/15 3:53 PM) *HI* (08/29/15 10:58 AM) Respiratory Rate [14-20 BRMIN] 19 BRMIN 16 BRMIN (08/29/15 3:53 PM) (08/29/15 10:58 AM) Peripheral Pulse Rate [60-100 bpm] 56 bpm 53 bpm *LOW* *LOW* (08/29/15 3:53 PM) (08/29/15 10:58 AM) Weight 79.545 kg (08/29/15 10:58 AM) Body Mass Index 23.78 m2 (08/29/15 10:58 AM) Problem List Condition Effective Dates Status Health Status Informant Bipolar(Confirmed) Resolved Eruption1, 2 04/02/08 Active 1Data migrated from [employer] on 10/29/14.2Data migrated from [employer] on 10/29/14. Allergies, Adverse Reactions, Alerts Substance Reaction Severity Status NKDA1 Active 1Data migrated from [employer] on 07/22/15. Originally documented as NKA. Medications cefTRIAXone 250 mg, Route: IM, Drug form: PDR/INJ, ONCE, Dosing Weight 79.545, kg, Priority : STAT, Start date: 08/29/15 14:50:00, Stop date: 08/29/15 14:50:00 Notes: (Same As: Rocephin).Use with 100 mL NS and infuse over 30 min MEDICATION WASTE Product Size: 1000 mgProduct Wasted: ___ mg Start Date: 08/29/15 Stop Date: 08/29/15 Status: Completeddoxycycline hyclate 100 mg oral tablet 100 mg=1 tab, PO, Q12H, X 10 day, # 20 tab, 0 Refill(s) Start Date: 08/29/15 Stop Date: 09/08/15 Status: Orderedibuprofen 600 mg, 1 tab, Route: PO, Drug form: TAB, ONCE, Dosing Weight 79.545, kg, Priority: STAT, Start date: 08/29/15 14:12:00, Stop date: 08/29/15 14:12:00 Notes: (Same as: Motrin)"Do Not Crush" Take with food. Start Date: 08/29/15 Stop Date: 08/29/15 Status: CompletedNorco 5/325 oral tablet 1 tab, Route: PO, Drug Form: TAB, Dosing Weight 79.545, kg, ONCE, STAT, Start date: 08/29/15 14:12:00, Stop date: 08/29/15 14:12:00 Notes: (Same as: Parlier 325/5) Do not exceed 4gm/day of acetaminophen. Start Date: 08/29/15 Stop Date: 08/29/15 Status: CompletedTylenol with Codeine #3 oral tablet 1 tab, PO, Q6H, PRN Pain, X 3 day, # 12 tab, 0 Refill(s) Start Date: 08/29/15 Stop Date: 09/01/15 Status: OrderedTylenol with Codeine #3 oral tablet 1 tab, PO, Q6H, PRN Pain, X 5 day, # 20 tab, 0 Refill(s) Start Date: 08/29/15 Stop Date: 08/29/15 Status: Discontinued Results URINE AND STOOL Most recent to oldest [Reference Range]: 1 UA Turbidity [Clear] Clear (4/1/16 2:02 PM) UA Color [Yellow] Light Yellow *NA* (08/29/15 2:02 PM) UA pH [5.0-8.0] >=9.0 *ABN* (08/29/15 2:02 PM) UA Spec Grav [<=1.030] 1.004 (08/29/15 2:02 PM) UA Glucose [Negative mg/dL] Negative mg/dL *NA* (08/29/15 2:02 PM) UA Blood [Negative] Negative (08/29/15 2:02 PM) UA Ketones Negative *NA* (08/29/15 2:02 PM) UA Protein [Negative mg/dL] Negative mg/dL (08/29/15 2:02 PM) UA Urobilinogen [0.1-1.0 mg/dL] <=1.0 mg/dL *NA* (08/29/15 2:02 PM) UA Bili [Negative] Negative *NA* (08/29/15 2:02 PM) UA Leuk Est [Negative] Negative (08/29/15 2:02 PM) UA Nitrite [Negative] Negative (08/29/15 2:02 PM) UA WBC [0-5 /HPF] <1 /HPF (08/29/15 2:02 PM) UA RBC [0-2 /HPF] <1 /HPF (08/29/15 2:02 PM) UA Sq Epi None Seen *NA* (08/29/15 2:02 PM) MOLECULAR DIAGNOSTIC Most recent to oldest [Reference Range]: 1 Source APTIMA Urine *NA* (08/29/15 2:02 PM) N gonorrhea by Amp Det (APTIMA) [Negative] Negative *NA* (08/29/15 2:02 PM) C trachomatis by Amp Det (APTIMA) [Negative] Negative *NA* (08/29/15 2:02 PM) Immunizations No data available for this section Procedures Procedure Date Related Diagnosis Body Site LASIK Social History Social History Type Response Smoking Status Never smoker; Exposure to Tobacco Smoke None; Cigarette Smoking Last 365 Days No; Reg Smoking Cessation Counseling No Assessment and Plan No data available for this section
--- OUTSIDE RECORDS SUMMARY | 2018-07-06 16:32 | XMS REPORT | Summary of Care ---
:1980 Author Organization [facility] Address [address] [place] [id number]- Encounter HQ Encntr_alibre(FIN) [id number] Date(s): 10/07/16 - 10/07/[address] [address]- Discharge Disposition: Home or Self Care Attending Physician: Murray Knowles MD Referring Physician: Murray Knowles MD Vital Signs No data available for this section Problem List Condition Effective Dates Status Health Status Informant Bipolar(Confirmed) Resolved Eruption1, 2 04/02/08 Active 1Data migrated from [employer] on 10/29/14.2Data migrated from [employer] on 10/29/14. Allergies, Adverse Reactions, Alerts Substance Reaction Severity Status NKDA1 Active 1Data migrated from [employer] on 07/22/15. Originally documented as NKA. Medications No data available for this section Results No data available for this section Immunizations No data available for this section Procedures Procedure Date Related Diagnosis Body Site LASIK Social History Social History Type Response Smoking Status Never smoker; Exposure to Tobacco Smoke None; Cigarette Smoking Last 365 Days No; Reg Smoking Cessation Counseling No Assessment and Plan No data available for this section
--- NOTE | 2018-07-06 17:46 | EDPHYS ---
Physician Documentation [facility] Name: Scar Leon Age: 38 yrs Sex: Male : 1980 Arrival Date: 07/06/2018 Time: 16:32 Bed 9 Private MD: None, None ED Physician Woody Damon HPI: 07/06 17:53 This 38 yrs old Male presents to ER via Ambulatory with complaints of Snake snw bite. 17:53 The patient was bitten on the right hip, by a snake, walking through tall grass at work snw and must have walked by the snake. Onset: The symptoms/episode began/occurred suddenly, 1 hour(s) ago, and became persistent. Animal information: Patient/Caregiver unable to provide information related to the animal. Secondary to the bite the patient reports none, pt wanted to be checked. Associated signs and symptoms: The patient has no apparent associated signs or symptoms. Severity of symptoms: At their worst the symptoms were very mild. The patient has not experienced similar symptoms in the past. It is unknown whether or not the patient has recently seen a physician. Historical: - Allergies: 16:51 No Known Allergies; hj - Home Meds: 16:51 Geodon oral oral [Active]; Cymbalta oral oral [Active]; hj - PMHx: 16:51 Depression; Bipolar disorder; hj - PSHx: 16:51 None; hj - Immunization history:: Adult Immunizations up to date. - Social history:: Smoking status: Patient/guardian denies using tobacco, Patient/guardian denies using alcohol. - Ebola Screening: : Patient negative for fever greater than or equal to 101.5 degrees Fahrenheit, and additional compatible Ebola Virus Disease symptoms Patient denies exposure to infectious person Patient denies travel to an Ebola-affected area in the 21 days before illness onset. ROS: 17:52 Constitutional: Negative for fever, chills, and weight loss, Eyes: Negative for injury, snw pain, redness, and discharge, ENT: Negative for injury, pain, and discharge, Neck: Negative for injury, pain, and swelling, Cardiovascular: Negative for chest pain, palpitations, and edema, Respiratory: Negative for shortness of breath, cough, wheezing, and pleuritic chest pain, Abdomen/GI: Negative for abdominal pain, nausea, vomiting, diarrhea, and constipation, Back: Negative for injury and pain, : Negative for injury, bleeding, discharge, and swelling, MS/Extremity: Negative for injury and deformity, Skin: Negative for injury, rash, and discoloration, Neuro: Negative for headache, weakness, numbness, tingling, and seizure. Exam: 17:52 Constitutional: This is a well developed, well nourished patient who is awake, alert, snw and in no acute distress. Head/Face: Normocephalic, atraumatic. Eyes: Pupils equal round and reactive to light, extra-ocular motions intact. Lids and lashes normal. Conjunctiva and sclera are non-icteric and not injected. Cornea within normal limits. Periorbital areas with no swelling, redness, or edema. ENT: Nares patent. No nasal discharge, no septal abnormalities noted. Tympanic membranes are normal and external auditory canals are clear. Oropharynx with no redness, swelling, or masses, exudates, or evidence of obstruction, uvula midline. Mucous membranes moist. Neck: Trachea midline, no thyromegaly or masses palpated, and no cervical lymphadenopathy. Supple, full range of motion without nuchal rigidity, or vertebral point tenderness. No Meningismus. Chest/axilla: Normal chest wall appearance and motion. Nontender with no deformity. No lesions are appreciated. Cardiovascular: Regular rate and rhythm with a normal S1 and S2. No gallops, murmurs, or rubs. Normal PMI, no JVD. No pulse deficits. Respiratory: Lungs have equal breath sounds bilaterally, clear to auscultation and percussion. No rales, rhonchi or wheezes noted. No increased work of breathing, no retractions or nasal flaring. Abdomen/GI: Soft, non-tender, with normal bowel sounds. No distension or tympany. No guarding or rebound. No evidence of tenderness throughout. Back: No spinal tenderness. No costovertebral tenderness. Full range of motion. Skin: Warm, dry with normal turgor. Normal color with no rashes, no lesions, and no evidence of cellulitis. MS/ Extremity: Pulses equal, no cyanosis. Neurovascular intact. Full, normal range of motion. Neuro: Awake and alert, GCS 15, oriented to person, place, time, and situation. Cranial nerves II-XII grossly intact. Motor strength 5/5 in all extremities. Sensory grossly intact. Cerebellar exam normal. Normal gait. Psych: Awake, alert, with orientation to person, place and time. Behavior, mood, and affect are within normal limits. Vital Signs: 16:52 BP 147 / 97; Pulse 81; Resp 18; Temp 98.6(TE); Pulse Ox 100% on R/A; Weight 99.79 kg; hj Height 6 ft. 0 in. (182.88 cm); Pain 0/10; 16:52 Body Mass Index 29.84 (99.79 kg, 182.88 cm) hj MDM: 17:45 Patient medically screened. snw 17:52 Data reviewed: vital signs, nurses notes. Data interpreted: Pulse oximetry: on room air snw is 100 %. Interpretation: normal. Counseling: I had a detailed discussion with the patient and/or guardian regarding: the historical points, exam findings, and any diagnostic results supporting the discharge/admit diagnosis, the presence of at least one elevated blood pressure reading (>120/80) during this emergency department visit, the need for outpatient follow up, to return to the emergency department if symptoms worsen or persist or if there are any questions or concerns that arise at home. Special discussion: Based on the history and exam findings, there is no indication for further emergent testing or inpatient evaluation. I discussed with the patient/guardian the need to see the primary care provider for further evaluation of the symptoms. Medical screen evaluation completed. [facility] emergency medical condition absent. 17:54 ED course: no break in the skin, pt up to date on immunizations. snw Administered Medications: No medications were administered Disposition: 07/07 12:54 Co-signature as Attending Physician, Woody Damon MD I agree with the assessment and wa plan of care. Disposition: 07/06/18 17:45 Discharged to Home. Impression: Encounter for screening, unspecified. - Condition is Stable. - Discharge Instructions: Snake Bite. - Work release form, Medication Reconciliation Form, Thank You Letter, Antibiotic Education, Prescription Opioid Use form. - Follow up: Private Physician; When: 2 - 3 days; Reason: Recheck today's complaints, Continuance of care, Re-evaluation by your physician. Follow up: Emergency Department; When: As needed; Reason: Worsening of condition. Signatures: Roya Delvalle FNP-C FNP-Csnw Alyse Hall RN RN iw Jeewl Veras RN RN Woody Damon MD MD wa Corrections: (The following items were deleted from the chart) 07/06 17:58 17:45 07/06/2018 17:45 Discharged to Home. Impression: Encounter for screening, iw unspecified. Condition is Stable. Discharge Instructions: Snake Bite. Forms are Work release form, Medication Reconciliation Form, Thank You Letter, Antibiotic Education, Prescription Opioid Use. Follow up: Private Physician; When: 2 - 3 days; Reason: Recheck today's complaints, Continuance of care, Re-evaluation by your physician. Follow up: Emergency Department; When: As needed; Reason: Worsening of condition. snw
--- NOTE | 2018-07-06 17:46 | ER ---
Nurse's Notes [facility] Name: Scar Leon Age: 38 yrs Sex: Male : 1980 Arrival Date: 07/06/2018 Time: 16:32 Bed 9 Private MD: None, None Diagnosis: Encounter for screening, unspecified Presentation: 07/06 16:48 Presenting complaint: Patient states: i was at work, working [employer] when i hj felt a snake bit my R hip area, an inch below the hip bone; it seems that it did not penetrate, but i just want to be checked; happened 3 omins ago;. Transition of care: patient was not received from another setting of care. Onset of symptoms was July 06, 2018. Risk Assessment: Do you want to hurt yourself or someone else? Patient reports no desire to harm self or others. Initial Sepsis Screen: Does the patient meet any 2 criteria? No. Patient's initial sepsis screen is negative. Does the patient have a suspected source of infection? No. Patient's initial sepsis screen is negative. Care prior to arrival: None. 16:48 Method Of Arrival: Ambulatory 16:48 Acuity: JOSEPHINE 4 Triage Assessment: 16:51 Bite description: bite sustained to right hip by a snake, animal information: Appearance: was unknown if well or sick, is from animal, vaccination(s) is not applicable was sustained 30-60 minutes ago. Animal status: unknown and not captured, Animal control has. General: Appears in no apparent distress. uncomfortable, Behavior is calm, cooperative, appropriate for age. Pain: Denies pain. Historical: - Allergies: 16:51 No Known Allergies; - Home Meds: 16:51 Geodon oral oral [Active]; Cymbalta oral oral [Active]; - PMHx: 16:51 Depression; Bipolar disorder; - PSHx: 16:51 None; - Immunization history:: Adult Immunizations up to date. - Social history:: Smoking status: Patient/guardian denies using tobacco, Patient/guardian denies using alcohol. - Ebola Screening: : Patient negative for fever greater than or equal to 101.5 degrees Fahrenheit, and additional compatible Ebola Virus Disease symptoms Patient denies exposure to infectious person Patient denies travel to an Ebola-affected area in the 21 days before illness onset. Screenin:52 Abuse screen: Denies threats or abuse. Denies injuries from another. Nutritional hj screening: No deficits noted. Tuberculosis screening: No symptoms or risk factors identified. Fall Risk None identified. Assessment: 16:52 Derm: Skin. hj 17:02 General: Appears in no apparent distress. Behavior is calm, cooperative, appropriate ca1 for age, Rat snake or Cotton snake is suspected of the bite as reported by the pt. . Neuro: Level of Consciousness is awake, alert, obeys commands, Oriented to person, place, time, situation. Cardiovascular: Heart tones S1 S2 present Capillary refill < 3 seconds. Respiratory: Airway is patent Respiratory effort is even, unlabored, Respiratory pattern is regular, symmetrical, Breath sounds are clear bilaterally. GI: No signs and/or symptoms were reported involving the gastrointestinal system. : No signs and/or symptoms were reported regarding the genitourinary system. EENT: No signs and/or symptoms were reported regarding the EENT system. Derm: Skin is intact, Skin is pink, warm \T\ dry. Vital Signs: 16:52 BP 147 / 97; Pulse 81; Resp 18; Temp 98.6(TE); Pulse Ox 100% on R/A; Weight 99.79 kg; hj Height 6 ft. 0 in. (182.88 cm); Pain 0/10; 16:52 Body Mass Index 29.84 (99.79 kg, 182.88 cm) ED Course: 16:32 Patient arrived in ED. mr 16:33 None, None is Private Physician. mr 16:50 Triage completed. hj 16:52 Arm band placed on right wrist. hj 16:52 Patient has correct armband on for positive identification. Bed in low position. Call light in reach. Side rails up X 1. 17:01 Coral Purcell RN is Primary Nurse. ca1 17:36 Roya Delvalle FNP-C is PHCP. snw 17:36 Woody Damon MD is Attending Physician. snw Administered Medications: No medications were administered Outcome: 17:45 Discharge ordered by . snw 17:58 Patient left the ED. iw Signatures: Roya Delvalle FNP-C ACID PATROLLER-Levy YanLily mr Alyse Hall RN RN Jewel Veras RN RN Coral Purcell RN RN ca1 Corrections: (The following items were deleted from the chart) 16:54 16:52 Pulse 81bpm; Resp 18bpm; Pulse Ox 100% RA; Temp 98.6F Temporal; 99.79 kg; Height hj 6 ft. 0 in.; BMI: 29.8; Pain 0/10; hj 17:08 17:02 Derm: ca1 ca1
== END 2018-07-06 17:58 | disposition home or self-care (01) ==
LOC: ER 16:28
DX: Z13.9 Encounter for screening, unspecified (principal); F31.9 Bipolar disorder, unspecified; F32.9 Major depressive disorder, single episode, unspecified
CPT/HCPCS: 99281